=== PATIENT | male | born 1935 | race Caucasian/White ===

== ENCOUNTER 2021-12-06 09:40 | Inpatient (IN) | payer MEDICARE ==
[2021-12-06 10:30] LABS: Hemoglobin 14.1 g/dL (13.5-17.5); MDiff Complete? YES; Mean Corpuscular HGB CONC 35.2 g/dL (32.0-36.0); Mean Corpuscular Hemoglobin 28.4 pg (27.0-33.0); Mean Corpuscular Volume 80.8 fl (81.2-95.1); Mean Platelet Volume 9.9 fl (7.4-10.4); Platelet Count 336 10x3/uL (150-450); RBC Distribution Width 14.1 % (11.5-14.5); Red Blood Cell (RBC) Count 4.96 10x6/uL (4.32-5.72); White Blood Cell (WBC) Count 28.4 10x3/uL (3.5-10.5)
[2021-12-06] MEDS ORDERED: cefTRIAXone\\ROCEPHIN 1 GM VIAL ONE (10:32)
[2021-12-06] MEDS ORDERED: Azithromycin 500 MG VIAL ONE (10:32)
[2021-12-06 10:42] LABS: ALT (SGPT) 105 U/L (8-55); AST (SGOT) 34 U/L (5-34); Albumin 3.3 g/dL (3.4-4.8); Alkaline Phosphatase 123 U/L (40-110); Anion Gap 17 mmol/L (10-20); BUN (Urea Nitrogen) 28 mg/dL (8.4-25.7); Bilirubin, Total 1.1 mg/dL (0.2-1.2); Calc. Creatinine Clearance 0 mL/min (70-130); Calcium 8.5 mg/dL (7.8-10.44); Carbon Dioxide 21 mmol/L (23-31); Chloride 96 mmol/L (98-107); Estimated GFR 51; Globulin 2.9 g/dL (2.4-3.5); Glucose 121 mg/dL (83-110); Potassium 3.8 mmol/L (3.5-5.1); Protein, Total 6.2 g/dL (5.8-8.1); Sodium 130 mmol/L (136-145)
[2021-12-06 10:58] LABS: Band 8 % (5-11); Neutrophil 55 % (42-75); Reactive Lymphocytes 10 % (0-10)
[2021-12-06 11:00] LABS: Lymphocytes 11 % (21-51); Monocytes 15 % (0-10)
[2021-12-06 11:01] LABS: Platelet Morphology Comment Appears Adequate
[2021-12-06 11:03] LABS: RBC Morphology Normal
[2021-12-06 12:26] LABS: Bilirubin Neg (Negative); Blood, Urine 10 (Negative); Clarity Sl. Cloudy (Clear); Glucose, Urine (Dipstick) Normal (Negative); Ketone, Urine 15 mg/dL (Negative); Leukocyte Negative (Negative); Nitrite Negative (Negative); Protein, Urine (Dipstick) 15 mg/dl (Neg-Trace); Specific Gravity, Urine 1.015 (1.005-1.030); Urobilinogen Normal mg/dL (Less than 2)
[2021-12-06 12:30] LABS: Bacteria/HPF None Seen HPF (None Seen); RBC/HPF 0-3 HPF (0-3); Renal Epithelial 0-3 HPF (None Seen); Squamous Epithelial 0-3 HPF (0-3); WBC/HPF 0-3 HPF (0-3)
[2021-12-06] MEDS ORDERED: Diltiazem 125 MG/25 ML ONE (12:32)
[2021-12-06 12:42] LABS: SARS-CoV-2 NAA Rapid Test Not Detected (NotDetected)
[2021-12-06] MEDS ORDERED: Bisacodyl 10 MG SUPP PR PRN (12:58)
[2021-12-06] MEDS ORDERED: Acetaminophen 325 MG TAB PO PRN (12:58)
[2021-12-06] MEDS ORDERED: Senokot S 8.6-50 MG TAB PO PRN (12:58)
[2021-12-06] MEDS ORDERED: Bisacodyl 5 MG TAB PO PRN (12:58)
[2021-12-06] MEDS ORDERED: Diltiazem 125 MG in Sodium Chloride 0.9% 100 ML IVPB SCH ×2 (13:15→15:45)
[2021-12-06 16:54] LABS: Hemoglobin A1c 5.3 % (4.0-6.0)
[2021-12-06] MEDS ORDERED: cefTRIAXone\\ROCEPHIN 1 GM in Sodium Chloride 0.9% 100 ML IVPB SCH (19:15)
[2021-12-06] MEDS ORDERED: methylPREDNISolone Sod Succ/PF 125 MG/2 ML VIAL IVP SCH (19:30)
[2021-12-06] MEDS ORDERED: Magnesium 2 GM/50 ML(in water) 2 GM in Premix Bag 1 BAG IVPB SCH ×2 (19:30→22:00)
[2021-12-06] MEDS: Sodium Chloride 0.9% 1,000 ML IV SCH (21:17)
[2021-12-06] MEDS: oFLOXacin 0.3% Opth 5 ML BOT L EAR SCH (23:00)
[2021-12-07] MEDS ORDERED: Guaifenesin DM 100-10/5 ML UDCUP PO PRN (00:27)
[2021-12-07] MEDS ORDERED: Tamsulosin HCl 0.4 MG CAP PO SCH ×2 (00:30→21:00)
[2021-12-07 03:06] LABS: Legionella Urinary Ag Negative (Negative); Strep pneumo Urine Ag NEGATIVE (NEGATIVE)
[2021-12-07 05:32] LABS: #Basophils 0.1 10x3/uL (0.0-0.2); #Monocytes 0.4 10x3/uL (0.0-1.1); #Neutrophils 13.3 10x3/uL (1.5-8.4); %Basophils 0.3 % (0.0-2.0); %Eosinophils 0.1 % (0.0-6.0); %Lymphocytes 19.1 % (18.0-47.0); %Monocytes 2.3 % (0.0-10.0); Hemoglobin 12.6 g/dL (13.5-17.5); Mean Corpuscular HGB CONC 33.9 g/dL (32.0-36.0); Mean Corpuscular Hemoglobin 27.8 pg (27.0-33.0); Mean Corpuscular Volume 82.1 fl (81.2-95.1); Mean Platelet Volume 10.3 fl (7.4-10.4); Platelet Count 326 10x3/uL (150-450); RBC Distribution Width 14.3 % (11.5-14.5); Red Blood Cell (RBC) Count 4.53 10x6/uL (4.32-5.72); White Blood Cell (WBC) Count 17.3 10x3/uL (3.5-10.5)
[2021-12-07 05:36] LABS: ALT (SGPT) 67 U/L (8-55); AST (SGOT) 27 U/L (5-34); Albumin 2.7 g/dL (3.4-4.8); Alkaline Phosphatase 108 U/L (40-110); Anion Gap 12 mmol/L (10-20); BUN (Urea Nitrogen) 21 mg/dL (8.4-25.7); Bilirubin, Direct 0.3 mg/dL (0.1-0.3); Bilirubin, Total 0.4 mg/dL (0.2-1.2); Calc. Creatinine Clearance 0 mL/min (70-130); Calcium 8.1 mg/dL (7.8-10.44); Carbon Dioxide 21 mmol/L (23-31); Cardiac Risk 10.4 (Less than 4.5); Chloride 106 mmol/L (98-107); Cholesterol 104 mg/dl (< 200 Desired); Estimated GFR 85; Glucose 195 mg/dL (83-110); HDL Cholesterol 10 mg/dL (>60 Neg Risk); LDL Cholesterol, Calculated 60 mg/dL; Magnesium 2.5 mg/dL (1.6-2.6); Potassium 3.6 mmol/L (3.5-5.1); Protein, Total 5.9 g/dL (5.8-8.1); Sodium 135 mmol/L (136-145); Triglycerides 169 mg/dL (Less than 150)
[2021-12-07 06:28] VITALS: BMI 25.8
[2021-12-07] MEDS ORDERED: Carvedilol 3.125 MG TAB PO SCH ×2 (08:15→17:00)
[2021-12-07] MEDS ORDERED: Mometasone/Formoterol 200/5 60 PUFF INH SCH (09:00)
[2021-12-07] MEDS ORDERED: Potassium Chloride 20 MEQ TAB PO SCH (09:00)
[2021-12-07] MEDS: Azithromycin 500 MG in Sodium Chloride 0.9% 250 ML 250 ML IVPB SCH (09:30)
[2021-12-07] MEDS: predniSONE 50 MG TAB PO SCH (09:32)
[2021-12-07] MEDS: oFLOXacin 0.3% Opth 5 ML BOT L EAR SCH ×2 (09:34→20:16)
[2021-12-07] MEDS: Sodium Chloride 0.9% 1,000 ML IV SCH (09:37)
[2021-12-07 13:18] LABS: HBCM Index 0.06 S/CO (0-0.79); Hep A IgM AB Non-Reactive (NonReactive); Hep A IgM S/CO 0.18 S/CO (0-0.79); Hep C IgG Ab Non-Reactive (NonReactive); Hep C Index 0.09 S/CO (0-0.79); Hepatitis B Core IgM Abs Non-Reactive (NonReactive)
[2021-12-07 17:54] LABS: HBSAg Index 0.39 S/CO (0-0.99); Hep B Surf Ag Non-Reactive S/CO (NonReactive)
[2021-12-07] MEDS ORDERED: cefTRIAXone\\ROCEPHIN 2 GM in Sodium Chloride 0.9% 100 ML IVPB SCH (19:15)
[2021-12-07] MEDS: Mometasone/Formoterol 200/5 60 PUFF INH SCH (19:21)
[2021-12-08 05:08] LABS: #Basophils 0.1 10x3/uL (0.0-0.2); #Monocytes 0.9 10x3/uL (0.0-1.1); #Neutrophils 17.2 10x3/uL (1.5-8.4); %Basophils 0.3 % (0.0-2.0); %Lymphocytes 23.7 % (18.0-47.0); %Monocytes 3.7 % (0.0-10.0); %Neutrophils 70.3 % (40.0-75.0); Hemoglobin 12.5 g/dL (13.5-17.5); Mean Corpuscular HGB CONC 33.8 g/dL (32.0-36.0); Mean Corpuscular Volume 82.8 fl (81.2-95.1); Mean Platelet Volume 10.5 fl (7.4-10.4); Platelet Count 335 10x3/uL (150-450); RBC Distribution Width 14.4 % (11.5-14.5); Red Blood Cell (RBC) Count 4.47 10x6/uL (4.32-5.72); White Blood Cell (WBC) Count 24.5 10x3/uL (3.5-10.5)
[2021-12-08] MEDS: Sodium Chloride 0.9% 1,000 ML IV SCH (05:52)
[2021-12-08 06:32] LABS: Anion Gap 11 mmol/L (10-20); BUN (Urea Nitrogen) 20 mg/dL (8.4-25.7); Calc. Creatinine Clearance 78 mL/min (70-130); Calcium 8.2 mg/dL (7.8-10.44); Carbon Dioxide 22 mmol/L (23-31); Chloride 111 mmol/L (98-107); Estimated GFR 87; Glucose 141 mg/dL (83-110); Magnesium 2.2 mg/dL (1.6-2.6); Potassium 3.6 mmol/L (3.5-5.1); Sodium 140 mmol/L (136-145)
[2021-12-08 07:05] LABS: MDiff Complete? YES
[2021-12-08 07:06] LABS: Band 4 % (5-11); Lymphocytes 16 % (21-51); Monocytes 3 % (0-10); Neutrophil 74 % (42-75); Reactive Lymphocytes 4 % (0-10)
[2021-12-08 07:07] LABS: Diff Comment (RBC Morph SCRN) NORMAL; Platelet Morphology Comment Appears Adequate
[2021-12-08] MEDS: Mometasone/Formoterol 200/5 60 PUFF INH SCH (07:15)
[2021-12-08] MEDS ORDERED: Potassium Chloride 20 MEQ TAB PO SCH (08:00)
[2021-12-08] MEDS ORDERED: Carvedilol 6.25 MG TAB PO SCH (08:00)
[2021-12-08] MEDS: predniSONE 50 MG TAB PO SCH (09:02)
[2021-12-08] MEDS: oFLOXacin 0.3% Opth 5 ML BOT L EAR SCH (09:03)
[2021-12-08] MEDS: Azithromycin 500 MG in Sodium Chloride 0.9% 250 ML 250 ML IVPB SCH (10:02)
[2021-12-08 15:27] VITALS: BP 145/87; TEMP 98.1
[2021-12-10] MEDS ORDERED: FLU VACC QS2022-23(65YR UP)/PF 240 MCG/0.7 ML SYRINGE IM ONE (07:00)
== END 2021-12-08 15:30 | disposition home or self-care (01) | DRG 871 ==
LOC: CSHERS 09:40 → SUATTDRO 09:40 → CSHTELE 18:55
PROVIDERS: ADMIT Family Medicine; ATTEND Family Medicine
DX: A41.9 Sepsis, unspecified organism (principal); G93.41 Metabolic encephalopathy; J18.9 Pneumonia, unspecified organism; J96.01 Acute respiratory failure with hypoxia; N17.9 Acute kidney failure, unspecified; E87.1 Hypo-osmolality and hyponatremia; I10 Essential (primary) hypertension; G51.0 Bell's palsy; Z85.820 Personal history of malignant melanoma of skin; Z20.822 Contact with and (suspected) exposure to COVID-19; S06.5XAD Traumatic subdural hemorrhage with loss of consciousness status unknown, subsequent encounter; Z66 Do not resuscitate; Z91.81 History of falling; I48.0 Paroxysmal atrial fibrillation; J47.9 Bronchiectasis, uncomplicated; E86.0 Dehydration; N40.1 Benign prostatic hyperplasia with lower urinary tract symptoms; R33.8 Other retention of urine; H60.502 Unspecified acute noninfective otitis externa, left ear
CPT/HCPCS: 36415; 70450; 70551; 71045; 80048; 80053; 80061; 80074; 80076; 81003; 81015; 83036; 83605; 83735; 83880; 84443; 84484; 85025; 87040; 87070; 87081; 87086; 87205; 87449; 87899; 93005; 93306; 94640; 94760; J0456; J0696; J2930; J3475; J3490; J7050; J7512; J7620; U0002